=== PATIENT | female | born 1990 | race Caucasian/White ===

== ENCOUNTER 2021-06-18 11:40 | Inpatient (IN) | payer MEDICARE, MEDICAID, SELFPAY ==
[2021-06-18] VITALS (10 sets, daily range): BP systolic 92–133; BP diastolic 54–92; PULSE 97–125; RESP 14–20; TEMP 36.6–36.8; O2SAT 94–100; BMI 20.1
--- NOTE | 2021-06-18 11:53 | XR_ITS ---
WS: [email or web address] Portable AP upright chest, 06/18/2021 Clinical Data: swallowed blade? Comparison: None. Findings: No nodules, masses or effusions are seen. The heart is normal. The pulmonary vascularity is not increased. No pneumonia or pneumothorax is seen. No abnormal radiopaque foreign body is noted in the esophagus, trachea or stomach. There are clips in the right upper quadrant from a cholecystectom y. XR/XR chest 1V portable [id number] Impression: Negative chest.
--- NOTE | 2021-06-18 11:53 | XR_ITS ---
WS: [email or web address] KUB, AP view, 06/18/2021 Clinical Data: swallowed foreign object Comparison: None. Findings: No abnormal intraabdominal masses or calcifications are seen. There is no dilatated small bowel or ev idence of obstruction. Radiopaque objects overlie the stomach but they do not have the appearance of a razor blade. There a re clips in the right upper quadrant from a cholecystectomy. There is a moderate amount of fecal mate rial in the colon. XR/XR KUB portable [id number] Impression: 1. Radiopaque clips overlie the stomach but they have the appearance of surgica l clips. 2. No definite radiopaque objects resembling razor blades are seen.
--- NOTE | 2021-06-18 11:54 | ECG_ITS ---
[facility] Test Date: 2021-06-18 Pat Name: Aylce Dubon Department: Room: Gender: Female Marketing Services Manager: : 1990 Requested By: Tomas Loyola Order Number: [id number] Gareth MD: Juliette Dillard M.D. Measurements Intervals [place] Rate: 95 P: 67 MS: 147 QRS: 85 QRSD: 98 T: 69 QT: 370 QTc: 466 Interpretive Statements SINUS RHYTHM No previous ECG available for comparison Electronically Signed On 06-18-2021 14:40:09 SQUAD LEADER by Juliette Dillard M.D. [id number]
--- NOTE | 2021-06-18 12:13 | ED_ITS ---
HPI - General Adult General: Chief complaint: Anxiety Stated complaint: High Anxiety Time Seen by Provider: 06/18/21 11:53 History of Present Illness: Patient is a 31-year-old female with history anxiety, PTSD, multiple suicide attempts by hanging who presents the emergency room concerns for high anxiety and possible swallowed foreign object. It is unclear how long ago patient swal lowed the foreign object but reportedly over 5-6 days ago. Patient tells me that he was chewing on the side of a dull razor blade which he a piece fell off and she thinks that she may have swallowed it. Patient has no complaint of chest pain, abdominal pain, nausea/vomiting, hemoptysis, hematemesis, or other focal complaints of pain. Patient reports this happened about 3 hours ago. Patient denies any other coingestions. Denies any suicidal ideation or homicidal ideation currently. Patient reports that she is suffering from severe PTSD and is not able to take care of her symptoms. Patient denies any psychosis active visual or auditory hallucination. Patient was seen today at [facility] which documented that patient has had 2 suicide attempt by hanging in the past and patient swallowd a razor blade yesterday night. Onset: earlier today Duration:ongoing Location:home Severity:moderate/severe Associated symptoms: Deny chest pain, dyspnea, nausea, rash, palpitations or vomiting Review of Systems Const: Denies: fever(s) or chills Eyes: Denies: change in vision ENMT: Denies: mouth pain Card: Denies: chest pain or palpitations Resp: Denies: dyspnea or non-productive cough GI: Denies: abdominal pain, nausea, vomiting or diarrhea : Denies: dysuria Musc: Denies: extremity pain Skin/Breast: Denies: rash or new lesions Neuro: Denies: weakness in extremities Psych: Reports: anxiety Raimundo/Lymph: Denies: easy bruising PFSH ED PFSH: Medical History Anxiety PTSD (post-traumatic stress disorder) Social History Smoking and tobacco status: never smoked Alcohol intake: never Physical Exam Const: COMMON NORMALS: alert HENMT: COMMON NORMALS: atraumatic HEAD & SCALP: atraumatic MOUTH: moist mucous membranes not abnormal Eye: COMMON NORMALS: EOMs intact bilaterally and conjunctivae normal CONJUNCTIVA: Yes conjunctivae normal Neck/C-Spine: COMMON NORMALS: full ROM and supple Resp: COMMON NORMALS: normal respiratory effort and clear to auscultation bilaterally AUSCULTATION: clear to auscultation bilaterally Cardio: COMMON NORMALS: regular rate RATE: regular rate GI: COMMON NORMALS: Soft to palpation and non-tender PALPATION: Yes Soft to palpation OTHER: No focal TTP. NO guarding rebound, guarding, rigidity. No CVA tenderness to percussion. Neg Urias/Neg McBurney's point tenderness, no suprabupic tenderness to palpation. Extremity: COMMON NORMALS: full ROM Neuro: SENSORIUM/ORIENTATION: Yes alert MOTOR EXAM: No Abnormal motor strength present and Other motor observations present (no focal motor deficits) Psych: COMMON NORMALS: speech normal SPEECH: Yes normal speech MOOD & AFFECT: Yes euthymic mood Procedures Nerve Block Nerve Block 1: Time out performed: Yes Local Anesthetic: lidocaine 1% Amount of anesthesia used (mL): 2 Side: left and right Nerve Blocks: other (sphenopalatine block) Procedure Successful: Yes Patient Tolerated Procedure: well and no complications Complications: none Additional Comments: Patient received a sphenopalatine block after patient was verbally consented. Risks of dysrhythmia discussed extensively with patient. 1 mL of lidocaine without epinephrine was inhaled in both nostril with significant relief of symptoms. Patient was placed on a groundwater monitoring technician for observation. No signs of dysrhythmia on groundwater monitoring technician she was observed for 40 minutes after the nerve block without any changes in cardiac rhythm. Patient has no focal complaints but reports that her PTSD symptoms improved significantly. Course Vital Signs: Vital signs: Vital Signs Temperature 97.9 F 06/18/21 11:52 Pulse Rate 101 H 06/18/21 13:11 Respiratory Rate 18 06/18/21 13:11 Blood Pressure 119/75 06/18/21 13:11 Pulse Oximetry 96 06/18/21 13:11 MDM - General Adult Medical Decision Making [31]yo patient w/ hx of multiple suicide attempts, PTSD presenting for anxiety, possible foreign object ingestion of unknown duration, and concerns for de pression. HDS, exam within normal limit Thoughts are linear and organized, and the patient has no AH/VH, or HI. Clinically the patient displays no overt toxidrome; they are well appearing, with low suspicion for toxic ingestion given history and exam. Symptoms unlikely 2/2 anemia, hypothyroidism, infection, or ICH. Workup: CBC, CMP, Lipase, salicylate/tylenol, Urine drug screen, KUB/XR chest XR showed radiooplaque clips overlying the stomach. Patient tells me her cholecystectomy was in 2007. I reviewed XR KUB from [facility] on 05/21/2019 which did not show any metallic objects. The surgical clip is new since 2019 patient has had no had any surgery since then. Unclear if this is new retained foreign objects. I discussed this finding with Dr. Arambula and Caleb Livingston. [1:15am] On reassessment, labs and workup wnl. Patient is hemodynamically stable with no acute medical complaints. Anxiety appears to improved with splenopalatine block. Please refer to the procedure note. Case discussed with psychiatric provider Dr. Arambula at [facility] clinic provider Ayaka Davis and NPH director Caleb Livingston who were all involved in the conversation and feel STRONGLY that patient needs to stay the hospital for evaluation for acute foreign object ingestion and psychiatric stabilization. At 2:00pm, patient's friend came to the emergency room to give us account of the story. However patient's service advocate contact was belligerent/confrontational with multiple staff members and directed explicit languages at staff. It is unclear whether the service advocate contact's patient's friend or patient's biological sister. Patient's friend refused to cooperate with us when we requested her to leave the premise of the room. She had to be escorted out by security officers. Case was discussed with Dr. Davalos who will follow this can for evaluation of acute retained object. Dr. Davalos will follow the case and reassess the patient in the morning. Disposition: Psych Lab Data : 06/18/21 13:21 06/18/21 13:27 Radiology Impressions Chest X-Ray 06/18/21 11:53 Impression: Negative chest. KUB X-Ray 06/18/21 11:53 Impression: 1. Radiopaque clips overlie the stomach but they have the appearance of surgical clips. 2. No definite radiopaque objects resembling razor blades are seen. Laboratory Results WBC 7.7 10^3/uL (4.0-10.0) 06/18/21 13:21 RBC 4.21 10^6/uL (4.1-5.3) 06/18/21 13:21 Hgb 12.3 g/dL (11.5-15.3) 06/18/21 13:21 Hct 37.0 % (37.0-47.0) 06/18/21 13:21 MCV 87.9 fl (81-99) 06/18/21 13:21 MCH 29.2 pg (28.0-34.0) 06/18/21 13:21 MCHC 33.2 g/dL (30.0-36.0) 06/18/21 13:21 RDW 12.8 % (12.1-15.1) 06/18/21 13:21 Plt Count 416 10^3/cmm (130-400) H 06/18/21 13:21 MPV 9.2 fL (7.4-10.4) 06/18/21 13:21 Neut % (Auto) 54.1 % 06/18/21 13:21 Lymph % (Auto) 35.4 % 06/18/21 13:21 [place] % (Auto) 6.8 % 06/18/21 13:21 Eos % (Auto) 2.7 % 06/18/21 13:21 Baso % (Auto) 0.9 % 06/18/21 13:21 Neut # (Auto) 4.14 10^3/uL (1.8-7.7) 06/18/21 13:21 Lymph # (Auto) 2.7 10^3/uL (0.8-4.8) 06/18/21 13:21 [place] # (Auto) 0.5 10^3/uL (0.2-0.9) 06/18/21 13:21 Eos # (Auto) 0.2 10^3/uL (0.0-0.8) 06/18/21 13:21 Baso # (Auto) 0.1 10^3/uL (0.0-0.1) 06/18/21 13:21 Nucleated RBC % (auto) 0 % 06/18/21 13:21 Nucleated RBCs # 0.0 /100WBC 06/18/21 13:21 PT 13.20 SECONDS (12.1-14.9) 06/18/21 13:27 INR 0.97 (0.8-1.2) 06/18/21 13:27 APTT 31.3 SECONDS (23.9-36.7) 06/18/21 13:27 Sodium 140 mmol/L (136-145) 06/18/21 13:27 Potassium 3.1 mmol/L (3.5-5.1) L 06/18/21 13:27 Chloride 104 mmol/L (98-107) 06/18/21 13:27 Carbon Dioxide 27 mmol/L (22-29) 06/18/21 13:27 Anion Gap 12.1 (5-19) 06/18/21 13:27 BUN 8 mg/dL (6-20) 06/18/21 13:27 Creatinine 0.4 mg/dL (0.5-0.9) L 06/18/21 13:27 GFR Calculation 185.0 mL/min (90-130) H 06/18/21 13:27 Glucose 85 mg/dL (65-115) 06/18/21 13:27 Calculated Osmolality 288 mOsm/kg (285-295) 06/18/21 13:27 Calcium 9.3 mg/dL (8.5-10.5) 06/18/21 13:27 HCG, Qual Negative (Negative) 06/18/21 13:27 Salicylates < 0.3 mg/dL (3-10) L 06/18/21 13:27 Acetaminophen < 5.0 ug/mL (10-30) L 06/18/21 13:27 Blood Type O Positive 06/18/21 13:27 Rho(D) Type Positive 06/18/21 13:27 Antibody Screen Negative 06/18/21 13:27 Imaging Data Other Imaging: Radiologist's impression: [address] [address] XRay Report Signed Patient: Alyce Dubon Unit #: [id number] : 1990 Age/Sex: 31 / F ADM Date: 06/18/21 Loc: ER Room/Bed: Attending Dr: Ordering Provider/Ordering MD: oTmas Loyola MD Date of Service: 06/18/21 Procedure(s): XR KUB portable [id number] Accession Number(s): [id number] Report Number: [id number] WS: [email or web address] KUB, AP view, 06/18/2021 Clinical Data: swallowed foreign object Comparison: None. Findings: No abnormal intraabdominal masses or calcifications are seen. There is no dilatated small bowel or evidence of obstruction. Radiopaque objects? overlie the stomach but they do not have the appearance of a razor blade. There are clips in the right upper quadrant from a cholecystectomy. There is a moderate amount of fecal material in the colon. XR/XR KUB portable [id number] Impression: ? 1. Radiopaque clips overlie the stomach but they have the appearance of surgical clips. 2. No definite radiopaque objects resembling razor blades are seen. ? Dictated By: Zoe Post MD Signed By: Zoe Post MD Signed Date/Time: 06/18/21 134 DD/ [address] [address] XRay Report Signed Patient: Alyce Dubon Unit #: [id number] : 1990 Age/Sex: 31 / F ADM Date: 06/18/21 Loc: ER Room/Bed: Attending Dr: Ordering Provider/Ordering MD: Tomas Loyola MD Date of Service: 06/18/21 Procedure(s): XR chest 1V portable [id number] Accession Number(s): [id number] Report Number: [id number] WS: [email or web address] Portable AP upright chest, 06/18/2021 Clinical Data: swallowed blade? Comparison: None. Findings: No nodules, masses or effusions are seen. The heart is normal. The pulmonary vascularity is not increased. No pneumonia or pneumothorax is seen. No abnormal radiopaque foreign body is noted in the esophagus, trachea or stomach. There are clips in the right upper quadrant from a cholecystectomy. XR/XR chest 1V portable [id number] Impression: Negative chest. ? Dictated By: Zoe Post MD Signed By: Zoe Post MD Signed Date/Time: 06/18/21 134 DD/ 1341 Discharge Plan Discharge Patient Disposition: Admitted As Inpatient Clinical Impression: Anxiety, Depression, Acute post-traumatic stress disorder Condition: Stable Coding Level of Care Code ED Architectural Technician for [employer] Fwd Exam Comprehensive
[2021-06-18 13:33] LABS: Basophils # 0.1 10^3/uL (0.0-0.1); Basophils % 0.9 %; Eosinophils # 0.2 10^3/uL (0.0-0.8); Eosinophils % 2.7 %; Hemoglobin 12.3 g/dL (11.5-15.3); Lymphocytes # 2.7 10^3/uL (0.8-4.8); Lymphocytes % 35.4 %; Mean Corpuscular HGB Conc 33.2 g/dL (30.0-36.0); Mean Corpuscular Hemoglobin 29.2 pg (28.0-34.0); Mean Corpuscular Volume 87.9 fl (81-99); Mean Platelet Volume 9.2 fL (7.4-10.4); Monocytes # 0.5 10^3/uL (0.2-0.9); Monocytes % 6.8 %; Neutrophils # 4.14 10^3/uL (1.8-7.7); Neutrophils % 54.1 %; Nucleated Red Blood Cells % 0 %; Platelet Count 416 10^3/cmm (130-400); Red Blood Count 4.21 10^6/uL (4.1-5.3); Red Cell Distribution Width 12.8 % (12.1-15.1); White Blood Count 7.7 10^3/uL (4.0-10.0)
[2021-06-18 13:51] LABS: HCG, Serum Qual Negative (Negative)
[2021-06-18 13:52] LABS: INR 0.97 (0.8-1.2)
[2021-06-18 13:53] LABS: Partial Thromboplastin Time 31.3 SECONDS (23.9-36.7)
[2021-06-18 14:01] LABS: Anion Gap 12.1 (5-19); Blood Urea Nitrogen 8 mg/dL (6-20); Calcium 9.3 mg/dL (8.5-10.5); Carbon Dioxide 27 mmol/L (22-29); Chloride 104 mmol/L (98-107); Glucose 85 mg/dL (65-115); Osmolality Calculated 288 mOsm/kg (285-295); Potassium 3.1 mmol/L (3.5-5.1); Sodium 140 mmol/L (136-145)
[2021-06-18 14:04] LABS: Acetaminophen < 5.0 ug/mL (10-30); Salicylate < 0.3 mg/dL (3-10)
--- NOTE | 2021-06-18 14:30 | P.NPUCON_ITS ---
Providers/Reason for Consult Consulting Physican/Specialty*: Ebenezer Arambula MD/Psychiatist Reason for Consult*: Concerns about self-harm and delusional thinking Primary Care Provider: Praveen Rea, Psych Consult HPI History of Present Illness Alyce Dubon is a 31 year old female who presents to the emergency room as referred by [facility] triage person. She is alleged to have swallowed a razor blade at some point recently. She is adamant that she chews on things because of stress but never swallowed anything. Went down a long list of stressors including her father recently and says that she has been taking Vistaril which does not help. She is adamant that she has had no thoughts of wanting to harm herself. I spoke with her sister who says that she is always a mess and her situation is a disaster. She feels like her sister is dealing with it about as well as she normally would. She is adamant that she is safe and would never harm herself. She feels very comfortable taking her home. Meds Home Medications and Allergies Allergies Allergy/AdvReac Type Severity Reaction Status Date / Time codeine Allergy ALGY-Swell Verified 06/18/21 11:52 Lip/Tongue/Throat PFSH NPU PFSH: Medical History (Updated 06/18/21 @ 12:36 by Tomas Loyola MD) Anxiety PTSD (post-traumatic stress disorder) Social History (Updated 06/18/21 @ 12:15 by Tomas Loyola MD) Smoking and tobacco status: never smoked Alcohol intake: never Substance/Drug Use: never Mental Status Exam MSE Comments: This is a 31-year-old been female who is about her stated age and is quite stressed out. She is dressed in street clothes appropriate for the weather. She is very pressured in her speech because she needs to tell her story. psychomotor activity is increased. Speech is his increased rate and volume because she is desperate to describe her situation and that she does not need to be in the hospital Alert, oriented X3 Attention and concentration[]. Memory is intact Mood is[]. Affect is []. Thought process is logical and goal-directed. Thought content: Denies auditory and visual hallucinations. No delusions or paranoia are noted. No current suicidal ideation, and no homicidal ideation. Fund of knowledge is []. Insight and judgment appear to be []. Impulse control is []. Vitals/I&O/Wt Last Vital Signs Temp 97.9 F 06/18/21 11:52 Pulse 101 H 06/18/21 13:11 Resp 18 06/18/21 13:11 BP 119/75 06/18/21 13:11 Pulse Ox 96 06/18/21 13:11 Weight last 48 hrs Weight 49.895 kg Data NPU : 06/18/21 13:21 06/18/21 13:27 Coding Level of Care Code Acute Cleaner Laboratory Equipment for [employer] Naun
[2021-06-18] MEDS: diphenhydrAMINE 50 mg/mL SDV 1mL IM (16:31)
[2021-06-18] MEDS: haloperidol inj 5 mg/mL INJ 1 mL IM (16:31)
[2021-06-18] MEDS: LORazepam 2 mg/mL INJ 1 mL (16:32)
[2021-06-19 06:00] VITALS: BP 89/52; PULSE 94; RESP 16; TEMP 36.7; O2SAT 91
[2021-06-19] MEDS: potassium chloride ER 20 mEq Tablet 40 MEQ PO ×2 (08:00→08:44)
[2021-06-19 08:02] LABS: Anion Gap 12.4 (5-19); Blood Urea Nitrogen 10 mg/dL (6-20); Calcium 9.2 mg/dL (8.5-10.5); Carbon Dioxide 25 mmol/L (22-29); Chloride 108 mmol/L (98-107); Glucose 97 mg/dL (65-115); Osmolality Calculated 293 mOsm/kg (285-295); Potassium 3.4 mmol/L (3.5-5.1); Sodium 142 mmol/L (136-145)
[2021-06-19] MEDS: lamoTRIgine 100 mg Tablet PO (08:44)
--- NOTE | 2021-06-19 09:05 | PC.OT ---
OT EVALUATION ATTEMPTED. NURSE ENTERS ROOM WITH THERAPIST; PATIENT AWAKENS TO TAKE MEDICATIONS BUT THEN CLOSES EYES AND WILL NOT PARTICIPATE IN OT EVALUATION. EVALUATION TO BE ATTEMPTED AGAIN TOMORROW.
[2021-06-19] MEDS: buprenorphine-naloxone 4-1 mg Film 2 EACH SUBLINGUAL ×2 (10:00→18:04)
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
[2021-06-19 14:00] VITALS: BP 89/46; O2SAT 98
[2021-06-19] MEDS: nicotine 2 mg Gum BUCCAL ×2 (18:27→21:05)
[2021-06-19] MEDS: acetaminophen 325 mg Tablet 650 MG PO (18:29)
[2021-06-19] MEDS: hyDROXYzine 25 mg Capsule 50 MG PO (18:40)
[2021-06-19 19:59] VITALS: BP 86/50; PULSE 88; RESP 15; TEMP 37.2; O2SAT 98
[2021-06-19] MEDS: prazosin 1 mg Capsule PO (21:02)
--- NOTE | 2021-06-19 21:11 | PC.NURSE ---
Patient requested more nicatine gum. Medication was given.
[2021-06-19] MEDS: gabapentin 100 mg Capsule 200 MG PO (22:20)
[2021-06-20] MEDS: nicotine 2 mg Gum BUCCAL ×4 (01:00→12:38)
[2021-06-20 03:29] LABS: Amphetamines Screen Urine Positive (Negative); Barbiturates Screen Urine Negative (Negative); Benzodiazepines Screen Urine Positive (Negative); Cocaine Screen Urine Negative (Negative); Opiate Screen Urine Negative (Negative); PCP Screen Urine Negative (Negative); THC Screen Urine Positive (Negative)
[2021-06-20 06:00] VITALS: BP 77/51; PULSE 88; RESP 16; TEMP 36.6; O2SAT 98
[2021-06-20] MEDS: buprenorphine-naloxone 4-1 mg Film 2 EACH SUBLINGUAL (09:34)
[2021-06-20] MEDS: gabapentin 100 mg Capsule 200 MG PO (09:34)
[2021-06-20] MEDS: lamoTRIgine 100 mg Tablet 200 MG PO (09:34)
[2021-06-20] MEDS: potassium chloride ER 20 mEq Tablet 40 MEQ PO (09:34)
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
[2021-06-20 13:03] VITALS: BP 77/51; PULSE 88; RESP 16; TEMP 36.6; O2SAT 98
--- NOTE | 2021-06-23 08:05 | PC.OT ---
OT EVALUATION ORDERS RECEIVED. PATIENT DISCHARGED BEFORE EVALUATION COULD BE COMPLETED.
== END 2021-06-20 13:13 | disposition home or self-care (01) | DRG 885 ==
LOC: ER 15:36 → NP 16:00
PROVIDERS: Admitting Provider Psychiatry & Neurology Psychiatry; Emergency Provider Emergency Medicine; Family Provider Family Medicine; PCP Family Medicine; Visit Provider Psychiatry & Neurology Psychiatry
DX: F25.0 Schizoaffective disorder, bipolar type (principal); F41.9 Anxiety disorder, unspecified; F43.11 Post-traumatic stress disorder, acute; Z91.51 Personal history of suicidal behavior; D64.9 Anemia, unspecified; E03.9 Hypothyroidism, unspecified; F60.3 Borderline personality disorder
CPT/HCPCS: 36415; 71045; 74018; 80048; 80306; 80307; 84703; 85025; 85610; 85730; 86850; 86900; 93005; 94664; 96372; 99285; J0573; J1200; J1630; J2060; J3490